=== PATIENT | male | born 1955 | race Caucasian/White ===

== ENCOUNTER → 2016-09-19 | Outpatient (CLI) | payer BC | LOC: US 08:30 | DX: R94.5 Abnormal results of liver function studies (principal) | CPT/HCPCS: 76700 ==

== ENCOUNTER → 2016-10-01 | Outpatient (CLI) | payer BC | LOC: HEART 5 08:00 | DX: R07.9 Chest pain, unspecified (principal) | CPT/HCPCS: 93306 ==

== ENCOUNTER 2016-11-23 23:56 | Emergency (ER) | payer BC ==
[2016-11-24 02:14] LABS: HEMOGLOBIN 15.7 gm/dl (14.0-17.5); WHITE BLOOD COUNT 8.2 K/UL (4.5-11.0)
[2016-11-24 02:48] LABS: BUN/CREATININE RATIO 23 (0-10)
== END 2016-11-24 06:40 | disposition home or self-care (01) ==
LOC: ER1 23:56
PROVIDERS: Physician Assistant
DX: T78.40XA Allergy, unspecified, initial encounter (principal); R07.9 Chest pain, unspecified; E11.9 Type 2 diabetes mellitus without complications; Z79.84 Long term (current) use of oral hypoglycemic drugs; Z87.891 Personal history of nicotine dependence; Z91.018 Allergy to other foods; X58.XXXA Exposure to other specified factors, initial encounter
CPT/HCPCS: 36415; 71010; 80053; 82550; 82553; 83874; 84484; 85025; 93005; 96361; 96374; 96375; 99283; J1200; J2930

== ENCOUNTER → 2020-10-10 | Outpatient (CLI) | payer MEDICARE, BC ==
[~2020-10-10] MED LIST: AMARYL 2MG TABLE2 MG PO; AREDS 2 PO; CRESTOR5 MG PO; ECOTRIN81 MG PO; FLEXERIL 10 MG10 MG PO; IBUPROFEN800 MG PO; JANUVIA100 MG PO; KEFLEX CAP 500500 MG PO; LOVENOX SY40 MG/0.4 SQ; OMEGA 3 FISH O1 EACH PO; OMEPRAZOLE20 MG PO; ONE DAILY1 EACH PO; PERCOCET 5/325 T1 EA PO; TOPROL XL50 MG PO; VOLTAREN EC 7575 MG PO
== END ==
LOC: EXRD 15:22
DX: M25.511 Pain in right shoulder (principal)
CPT/HCPCS: 73030

== ENCOUNTER → 2020-12-20 | Outpatient (CLI) | payer MEDICARE | LOC: RAD 09:12 | DX: Z01.812 Encounter for preprocedural laboratory examination (principal); M75.101 Unspecified rotator cuff tear or rupture of right shoulder, not specified as traumatic; M25.121 Fistula, right elbow | CPT/HCPCS: 36415; 82565; 84520; Q9967 ==

== ENCOUNTER 2021-04-04 04:42 | Emergency (ER) | payer MEDICARE ==
[~2021-04-04] VITALS: Ht 182.9 cm; Wt 126.1 kg
== END 2021-04-04 09:08 | disposition home or self-care (01) ==
LOC: ER1 04:42
DX: J00 Acute nasopharyngitis [common cold] (principal); Z20.822 Contact with and (suspected) exposure to COVID-19; Z23 Encounter for immunization; E11.9 Type 2 diabetes mellitus without complications; F17.210 Nicotine dependence, cigarettes, uncomplicated
CPT/HCPCS: 99283; M0243; U0002

== ENCOUNTER 2021-04-21 03:27 | Emergency (ER) | payer MEDICARE ==
[~2021-04-21 03:27] MED LIST changes: +MULTIVITAMIN1 EACH PO; -ONE DAILY1 EACH PO
[2021-04-21 03:54] LABS: HEMOGLOBIN 15.7 gm/dl (14.0-17.5); RED BLOOD COUNT 4.87 M/UL (4.20-5.50); WHITE BLOOD COUNT 8.2 K/UL (4.5-11.0)
[2021-04-21 04:17] LABS: BUN/CREATININE RATIO 24 (0-10)
[2021-04-21] MEDS ORDERED: SERTRALINE HCL50 MG PO (12:59)
[2021-04-21] MEDS ORDERED: LANTUS SOL100 UNIT/1 SQ (13:00)
== END 2021-04-21 06:45 | disposition home or self-care (01) ==
LOC: ER1 03:27
PROVIDERS: Physician Assistant
DX: E11.9 Type 2 diabetes mellitus without complications (principal); I48.91 Unspecified atrial fibrillation; K21.9 Gastro-esophageal reflux disease without esophagitis; F17.210 Nicotine dependence, cigarettes, uncomplicated; K42.9 Umbilical hernia without obstruction or gangrene; E11.8 Type 2 diabetes mellitus with unspecified complications
CPT/HCPCS: 71045; 80053; 81001; 82550; 82553; 83690; 83874; 84484; 85025; 99284; J1650; J1885; Q9967

== ENCOUNTER 2021-04-21 08:59 | Inpatient (IN) | payer MEDICARE, BC ==
[~2021-04-21] VITALS: Ht 182.9 cm; Wt 125.6 kg
[2021-04-21 09:41] LABS: BUN/CREATININE RATIO 21 (0-10)
[2021-04-21] MEDS ORDERED: SERTRALINE HCL50 MG PO (12:59)
[2021-04-21] MEDS ORDERED: LANTUS SOL100 UNIT/1 SQ (13:00)
== END 2021-04-21 15:04 | disposition short-term general hospital (02) | DRG 176 ==
LOC: ER1 08:59 → CDU 12:22
PROVIDERS: Emergency Medicine; ADMIT Internal Medicine
DX: I26.99 Other pulmonary embolism without acute cor pulmonale (principal); E11.9 Type 2 diabetes mellitus without complications; R00.0 Tachycardia, unspecified; F17.200 Nicotine dependence, unspecified, uncomplicated; Z20.822 Contact with and (suspected) exposure to COVID-19; Z79.4 Long term (current) use of insulin; Z71.6 Tobacco abuse counseling
CPT/HCPCS: 71045; 80048; 80053; 81001; 82550; 82553; 83690; 83874; 84484; 85025; 85610; 85730; 93005; 96374; 99284; 99285; J1650; J1885; J7030; Q9967; U0002

== ENCOUNTER → 2021-06-10 | Outpatient (CLI) | payer MEDICARE, BC ==
[~2021-06-10] MED LIST changes: +LANTUS SOL100 UNIT/1 SQ; +SERTRALINE HCL50 MG PO
== END ==
LOC: US 07:48
DX: R10.9 Unspecified abdominal pain (principal); K82.8 Other specified diseases of gallbladder
CPT/HCPCS: 76705

== ENCOUNTER → 2021-06-13 | Day surgery (SDC) | payer MEDICARE, BC ==
[~2021-06-13] MED LIST changes: +BOTOX INJ 1100 UNITS IM; +ELIQUIS5 MG PO; +EPIPEN 2-P0.3 MG/0.3 INJ; +ROBAXIN 750 MG750 MG PO; +ULTRAM50 MG PO; +VENTOLIN HFA INH; +XANAX0.5 MG PO
[2021-06-13 10:27] LABS: HEMOGLOBIN 14.3 gm/dl (14.0-17.5); RED BLOOD COUNT 4.5 M/UL (4.20-5.50)
[2021-06-13 10:52] LABS: BUN/CREATININE RATIO 20 (0-10)
== END | disposition home or self-care (01) ==
LOC: OR 08:20
PROVIDERS: Anesthesiology
DX: K80.10 Calculus of gallbladder with chronic cholecystitis without obstruction (principal); K42.0 Umbilical hernia with obstruction, without gangrene; E11.9 Type 2 diabetes mellitus without complications; K21.9 Gastro-esophageal reflux disease without esophagitis; I10 Essential (primary) hypertension; E78.2 Mixed hyperlipidemia; Z87.891 Personal history of nicotine dependence; Z91.048 Other nonmedicinal substance allergy status; Z79.01 Long term (current) use of anticoagulants; Z79.4 Long term (current) use of insulin; Z79.899 Other long term (current) drug therapy; Z20.822 Contact with and (suspected) exposure to COVID-19
CPT/HCPCS: 80048; 82962; 85025; 93005; J0690; J1100; J1170; J2001; J2405; J2704; J2710; J3010; J7030; J7120

== ENCOUNTER → 2021-07-02 | Outpatient (CLI) | payer MEDICARE, BC | LOC: CT 13:04 | DX: R63.0 Anorexia (principal); I81 Portal vein thrombosis; T81.9XXA Unspecified complication of procedure, initial encounter; R18.8 Other ascites; Z90.49 Acquired absence of other specified parts of digestive tract | CPT/HCPCS: Q9967 ==

== ENCOUNTER → 2021-07-12 | Outpatient (CLI) | payer MEDICARE, BC | LOC: MRI 13:11 | DX: K86.2 Cyst of pancreas (principal); C45.7 Mesothelioma of other sites; R18.8 Other ascites | CPT/HCPCS: 74183; A9577 ==

== ENCOUNTER 2021-08-16 14:34 | Emergency (ER) | payer MEDICARE, BC ==
[2021-08-16 15:21] LABS: HEMOGLOBIN 13.8 gm/dl (14.0-17.5); RED BLOOD COUNT 4.59 M/UL (4.20-5.50); WHITE BLOOD COUNT 3.4 K/UL (4.5-11.0)
[2021-08-16 15:45] LABS: BUN/CREATININE RATIO 36 (0-10)
[2021-08-16] MEDS ORDERED: ZOFRAN 4 MG4 MG/5 ML PO (18:04)
== END 2021-08-16 19:05 | disposition home or self-care (01) ==
LOC: ER1 14:34
PROVIDERS: Physician Assistant Medical
DX: E86.0 Dehydration (principal); R11.2 Nausea with vomiting, unspecified
CPT/HCPCS: 80053; 81001; 85025; 96374; 99284; J1642; J2550

== ENCOUNTER 2021-08-18 14:05 | Observation (INO) | payer MEDICARE, BC ==
[~2021-08-18] VITALS: Ht 182.9 cm; Wt 95.3 kg
[~2021-08-18 14:05] MED LIST changes: +ZOFRAN 4 MG4 MG/5 ML PO
[2021-08-18 15:16] LABS: HEMOGLOBIN 13.6 gm/dl (14.0-17.5); RED BLOOD COUNT 4.52 M/UL (4.20-5.50)
[2021-08-18 15:31] LABS: WHITE BLOOD COUNT 0.8 K/UL (4.5-11.0)
[2021-08-18 15:43] LABS: BUN/CREATININE RATIO 37 (0-10)
[2021-08-18] MEDS ORDERED: ROXICODONE5 MG PO (20:16)
--- NOTE | 2021-08-18 20:25 | NUR ---
NOTIFIED DR ANN OF CRITICAL LACTIC ACID LEVEL AND TO RESUME HOME MEDS. RECIEVED NO NEW ORDERS. WILL CONTINUE TO MNITOR.
--- NOTE | 2021-08-18 22:55 | NUR ---
NOTIFIED DR ANN THAT HOME MED LIST WAS DOCUMENTED AND THE COMPUTER AND WERE READY TO BE RESUMED. RECIEVED NO NEW ORDERS. WILL CONTINUE TO MONITOR.
[2021-08-19 01:56] LABS: HEMOGLOBIN 13.2 gm/dl (14.0-17.5); RED BLOOD COUNT 4.39 M/UL (4.20-5.50)
[2021-08-19 01:58] LABS: WHITE BLOOD COUNT 1.1 K/UL (4.5-11.0)
[2021-08-19 02:25] LABS: BUN/CREATININE RATIO 38 (0-10)
--- NOTE | 2021-08-19 09:23 | NUR ---
CRITICAL LAB VALUE LACTIC ACID OF 30.[address] AHUJA AT 0923. NO NEW ORDERS RECIEVED. WILL CONTINUE TO MONITOR.
== END 2021-08-20 01:10 | disposition short-term general hospital (02) ==
LOC: ER1 14:05 → MED SURG 4 18:51 → CDU 18:51 → MED SURG 4 20:07
PROVIDERS: Physician Assistant; ADMIT Internal Medicine Infectious Disease
DX: R11.2 Nausea with vomiting, unspecified (principal); Z20.822 Contact with and (suspected) exposure to COVID-19; C25.9 Malignant neoplasm of pancreas, unspecified; E86.0 Dehydration; E87.6 Hypokalemia; E83.42 Hypomagnesemia; D70.9 Neutropenia, unspecified; E11.9 Type 2 diabetes mellitus without complications; E87.2 Acidosis; R77.8 Other specified abnormalities of plasma proteins; E86.1 Hypovolemia; I81 Portal vein thrombosis; G24.9 Dystonia, unspecified; Z79.01 Long term (current) use of anticoagulants; Z79.4 Long term (current) use of insulin; Z79.899 Other long term (current) drug therapy; Z91.018 Allergy to other foods
CPT/HCPCS: 36415; 80053; 82550; 82553; 82962; 83036; 83605; 83690; 83735; 84132; 84484; 85025; 93005; 96372; 96374; 96375; 96376; 99285; C9113; G0378; J1170; J1650; J2405; J3475; J3480; J7030; U0002